=== PATIENT | female | born 1945 | race Caucasian/White ===

== ENCOUNTER 2018-07-21 13:42 | Inpatient (IN) | payer OTHER ==
[2018-07-21 14:19] LABS: ADD MAN DIFF? NO
[2018-07-21 14:21] LABS: WHITE BLOOD COUNT 2.2 10^3/ul (4.8-10.8)
[2018-07-21 14:21] LABS: ABNORMAL IP MESSAGE 1; BASOPHILS % 0.4 % (0.0-2.0); EOSINOPHILS % 0.4 % (0.0-7.0); HEMATOCRIT 35.6 % (37.0-47.0); HEMOGLOBIN 11.6 g/dl (12.0-16.0); LYMPHOCYTES # 0.3 10^3/ul (0.8-2.9); LYMPHOCYTES % 13.8 % (15.0-51.0); MEAN CORPUSCULAR HEMOGLOBIN 32.7 pg (29.0-33.0); MEAN CORPUSCULAR HGB CONC 32.6 g/dl (32.0-37.0); MEAN CORPUSCULAR VOLUME 100.3 fl (82.0-101.0); MEAN PLATELET VOLUME 13.1 fl (7.4-10.4); MONOCYTE # 0.2 10^3/ul (0.3-0.9); MONOCYTES % 9.4 % (0.0-11.0); NEUTROPHIL # 1.7 10^3/ul (1.6-7.5); NEUTROPHILS % 75.6 % (39.0-77.0); NUCLEATED RED BLOOD CELLS% 1.3 /100WBC (0.0-0.0); PLATELET COUNT 86 10^3/UL (140-415); RED BLOOD COUNT 3.55 10^6/ul (4.20-5.40); RED CELL DISTRIBUTION WIDTH 19.1 % (11.5-14.5)
[2018-07-21 14:22] LABS: POSITIVE DIFF @See below
[2018-07-21] MEDS: CEFEPIME 1GM/50 ML (PMX) 50 ML IVPB (14:34)
[2018-07-21] MEDS: IBUPROFEN 600 MG TAB PO (14:37)
[2018-07-21 14:40] LABS: INR 1.46; PT RATIO 1.4
[2018-07-21] MEDS ORDERED: ACETAMINOPHEN 650 MG SUPP PR (14:40)
[2018-07-21 14:41] LABS: PARTIAL THROMBOPLASTIN TIME 35.8 Sec (23.0-35.0)
[2018-07-21 14:42] LABS: ADD UMIC YES; UR ASCORBIC ACID NEGATIVE (NEGATIVE); UR BACTERIA MANY /HPF (NONE SEEN); UR BILIRUBIN (Dip) NEGATIVE (NEGATIVE); UR BLOOD (Dip) 3+ mg/dL (NEGATIVE); UR CLARITY TURBID (CLEAR); UR COLOR RED (YELLOW); UR GLUCOSE (Dip) NEGATIVE (NEGATIVE); UR KETONES (Dip) TRACE mg/dL (NEGATIVE); UR LEUKOCYTE ESTERASE (Dip) 2+ Leu/ul (NEGATIVE); UR NITRITE (Dip) NEGATIVE (NEGATIVE); UR RBC > 182 /HPF (0-5); UR SPECIFIC GRAVITY (Dip) 1.016 (1.003-1.030); UR SQUAMOUS EPITHELIAL CELL MODERATE /HPF (FEW); UR TOTAL PROTEIN (Dip) 3+ mg/dl (NEGATIVE); UR UROBILINOGEN (Dip) NEGATIVE (NEGATIVE); UR WBC > 182 /HPF (0-5)
[2018-07-21] MEDS: ACETAMINOPHEN 650 MG SUPP PR (14:45)
[2018-07-21] MEDS ORDERED: DEXTROSE 50% 50 ML SYRINGE (14:51)
[2018-07-21] MEDS: DEXTROSE 50% 50 ML SYRINGE IV ×5 (14:55→20:35)
[2018-07-21 14:57] LABS: ALANINE AMINOTRANSFERASE 9 IU/L (13-69); ALBUMIN 3.8 g/dl (3.3-4.9); ALBUMIN/GLOBULIN RATIO 0.88; ALKALINE PHOSPHATASE 251 IU/L (42-121); ASPARTATE AMINO TRANSFERASE 183 IU/L (15-46); BILIRUBIN,INDIRECT 0.4 mg/dl (0-1.1); BILIRUBIN,TOTAL 0.7 mg/dl (0.2-1.3); BLOOD UREA NITROGEN 68 mg/dl (7-20); CALCIUM 8.2 mg/dl (8.4-10.2); CREATININE 5.45 mg/dl (0.44-1.00); GLUCOSE 96 mg/dl (70-220); LIPASE 25 U/L (23-300); TOTAL PROTEIN 8.1 g/dl (6.1-8.1)
[2018-07-21 15:10] LABS: TROPONIN-I 0.046 ng/ml (0.000-0.120)
[2018-07-21] MEDS: VANCOMYCIN 1 GM (PMX) 250 ML IVPB (15:25)
[2018-07-21 15:39] LABS: AADO2 Arterial 79.3 mmHg (7.0-24.0); Allen Test ACCEPTAB; Arterial Base Excess -1.9 mmol/L (-3.0-3); Arterial Blood Gas Oxygen Sat 97.1 mmHG (95.0-100.0); Arterial COHb 1.3 % (0.0-3.0); Arterial Fraction of Oxyhgb 95.5 % (93.0-99.0); Arterial HCO3 21.7 mmol/L (22.0-26.0); Arterial MetHb 0.3 % (0.0-1.5); Arterial pCO2 33.5 mmhg (35-45); Blood Gas IEPAP 18/5; Blood Gas PS 13; MODE MASK - BIPAP; Site Right Radial
[2018-07-21] MEDS ORDERED: NACL 0.9% 3 ML SYG IV (16:30)
[2018-07-21 16:46] LABS: HAAIG REFLEX REFLEX FILED
[2018-07-21] MEDS ORDERED: VANCOMYCIN IV PER PHARMACY XX (17:00)
[2018-07-21 17:14] LABS: ANION GAP 19 (5-13); CARBON DIOXIDE 24 mmol/L (21-31); CHLORIDE 90 mmol/L (97-110)
[2018-07-21 17:26] LABS: SODIUM 133 mmol/L (135-144)
[2018-07-21] MEDS ORDERED: PHENYLephrine 20MG IN 250 ML 250 ML IV (17:30)
[2018-07-21 17:42] LABS: B-TYPE NATRIURETIC PEPTIDE > 175000 PG/ML (0-125)
[2018-07-21 17:46] LABS: HEPATITIS B SURFACE ANTIGEN NEGATIVE (NEGATIVE)
[2018-07-21] MEDS: LIDOCAINE 1% (MPF) 5 ML VIAL SC ×2 (18:00→19:00)
[2018-07-21 18:04] LABS: HEPATITIS B CORE ANTIBODY NEGATIVE (NEGATIVE); HEPATITIS C VIRAL ANTIBODY NEGATIVE (NEGATIVE)
[2018-07-21] MEDS: NORepinephrine 8MG/250 ML (PMX 250 ML IV (18:12)
[2018-07-21] MEDS: MEROPENEM 500MG/50 ML (PMX) 50 ML IVPB (18:21)
[2018-07-21] MEDS: ACCU-CHEK XX ×3 (19:00→23:00)
[2018-07-21 19:58] LABS: LACTIC ACID 2.7 mmol/L (0.5-2.0)
[2018-07-21] MEDS: HEPARIN 5,000 UNIT/1 ML VIAL SC (21:45)
[2018-07-22] MEDS: DEXTROSE 50% 50 ML SYRINGE IV ×4 (00:52→23:42)
[2018-07-22] MEDS: ACCU-CHEK XX ×12 (00:57→23:42)
[2018-07-22] MEDS: traMADol 50 MG TAB PO ×2 (01:29→07:57)
[2018-07-22 05:09] LABS: ABNORMAL IP MESSAGE 1; HEMATOCRIT 37.1 % (37.0-47.0); HEMOGLOBIN 12.3 g/dl (12.0-16.0); MEAN CORPUSCULAR HEMOGLOBIN 32.5 pg (29.0-33.0); MEAN CORPUSCULAR HGB CONC 33.2 g/dl (32.0-37.0); MEAN CORPUSCULAR VOLUME 97.9 fl (82.0-101.0); MEAN PLATELET VOLUME 12.1 fl (7.4-10.4); NUCLEATED RED BLOOD CELLS% 0.3 /100WBC (0.0-0.0); PLATELET COUNT 70 10^3/UL (140-415); RED BLOOD COUNT 3.79 10^6/ul (4.20-5.40); RED CELL DISTRIBUTION WIDTH 18.6 % (11.5-14.5)
[2018-07-22 05:09] LABS: WHITE BLOOD COUNT 7.2 10^3/ul (4.8-10.8)
[2018-07-22 05:14] LABS: ADD MAN DIFF? YES; POSITIVE DIFF @See below
[2018-07-22 05:44] LABS: ALANINE AMINOTRANSFERASE 20 IU/L (13-69); ALBUMIN 2.9 g/dl (3.3-4.9); ALKALINE PHOSPHATASE 253 IU/L (42-121); ANION GAP 16 (5-13); ASPARTATE AMINO TRANSFERASE 36 IU/L (15-46); BILIRUBIN,INDIRECT 0.6 mg/dl (0-1.1); BILIRUBIN,TOTAL 1.2 mg/dl (0.2-1.3); BLOOD UREA NITROGEN 70 mg/dl (7-20); CALCIUM 8.4 mg/dl (8.4-10.2); CARBON DIOXIDE 23 mmol/L (21-31); CHLORIDE 93 mmol/L (97-110); CREATININE 6.29 mg/dl (0.44-1.00); GLUCOSE 101 mg/dl (70-220); POTASSIUM 5.6 mmol/L (3.5-5.1); SODIUM 132 mmol/L (135-144); TOTAL PROTEIN 6.5 g/dl (6.1-8.1)
[2018-07-22 07:06] LABS: ANISOCYTOSIS 3+ (0-0); BAND NEUTROPHILS % (M) 43 % (0-4); BURR CELLS 3+ (0-0); EOSINOPHILS % (M) 10 % (0-7); ERYTHROBLAST% (NRBC) (M) 1 % (0-0); GIANT THROMBO% (M) 1 % (0-0); LYMPHOCYTES #M 0.2 10^3/ul (0.8-2.9); LYMPHOCYTES % (M) 4 % (15-51); METAMYELOCYTES %M 14 % (0-0); MONOCYTE #M 0.2 10^3/ul (0.3-0.9); MONOCYTES % (M) 4 % (0-11); MYELOCYTES #M 0.3 10^3/ul (0.0-0.0); MYELOCYTES % (M) 5 % (0-0); PLATELET ESTIMATE DECREASED; POIKILOCYTOSIS 2+ (0-0); POLYCHROMASIA 1+ (0-0); SEG NEUT #M 1.7 10^3/ul (1.6-7.5); SEGMENTED NEUTROPHILS (M) % 20 % (39-77)
[2018-07-22 07:48] LABS: HEMOGLOBIN A1C 5.1 % (0-5.9)
[2018-07-22] MEDS: HEPARIN 5,000 UNIT/1 ML VIAL SC ×2 (08:40→20:36)
[2018-07-22] MEDS: NORepinephrine 8MG/250 ML (PMX 250 ML IV ×2 (08:43→17:31)
[2018-07-22] MEDS: LEVOTHYROXINE 25 MCG TAB PO (09:32)
[2018-07-22] MEDS: FLUDROCORTISONE 0.1 MG TAB PO (09:32)
[2018-07-22] MEDS: HEPARIN 1000 UNITS/ML 10 ML INJ CATHETER (10:26)
[2018-07-22 11:32] LABS: DIGOXIN 0.5 ng/ml (1.0-2.0)
[2018-07-22] MEDS: DIGOXIN 0.125 MG TAB PO (12:27)
[2018-07-22 12:36] LABS: CREATINE KINASE 35 IU/L (23-200)
[2018-07-22 12:46] LABS: CK INDEX 4.9; CK-MB 1.71 ng/ml (0.0-2.4)
[2018-07-22 12:51] LABS: TROPONIN-I 0.177 ng/ml (0.000-0.120)
[2018-07-22] MEDS: LIDOCAINE 1% (MPF) 5 ML VIAL SC (17:00)
[2018-07-22] MEDS: MEROPENEM 500MG/50 ML (PMX) 50 ML IVPB (17:31)
[2018-07-22 18:20] LABS: CREATINE KINASE 27 IU/L (23-200)
[2018-07-22 18:31] LABS: CK INDEX 4.7; CK-MB 1.28 ng/ml (0.0-2.4)
[2018-07-22 18:32] LABS: TROPONIN-I 0.153 ng/ml (0.000-0.120)
[2018-07-22] MEDS ORDERED: PHENYLephrine 40 MG in DEXTROSE 5% 246 ML IV (22:00)
[2018-07-22 22:40] LABS: ANION GAP 17 (5-13); BLOOD UREA NITROGEN 36 mg/dl (7-20); CALCIUM 8.3 mg/dl (8.4-10.2); CARBON DIOXIDE 28 mmol/L (21-31); CHLORIDE 94 mmol/L (97-110); CREATININE 3.76 mg/dl (0.44-1.00); GLUCOSE 91 mg/dl (70-220); MAGNESIUM 1.9 mg/dl (1.7-2.5); POTASSIUM 4.1 mmol/L (3.5-5.1); SODIUM 139 mmol/L (135-144)
[2018-07-22] MEDS: ONDANSETRON 4 MG INJ IV (23:29)
[2018-07-23 00:32] LABS: CREATINE KINASE 23 IU/L (23-200)
[2018-07-23 00:45] LABS: CK INDEX 5.3; CK-MB 1.22 ng/ml (0.0-2.4)
[2018-07-23 00:46] LABS: TROPONIN-I 0.158 ng/ml (0.000-0.120)
[2018-07-23] MEDS: ACCU-CHEK XX ×10 (01:05→21:33)
[2018-07-23 05:36] LABS: ABNORMAL IP MESSAGE 1; HEMATOCRIT 37.6 % (37.0-47.0); HEMOGLOBIN 12.3 g/dl (12.0-16.0); MEAN CORPUSCULAR HEMOGLOBIN 32.7 pg (29.0-33.0); MEAN CORPUSCULAR HGB CONC 32.7 g/dl (32.0-37.0); PLATELET COUNT 67 10^3/UL (140-415); RED BLOOD COUNT 3.76 10^6/ul (4.20-5.40); RED CELL DISTRIBUTION WIDTH 18.5 % (11.5-14.5)
[2018-07-23 05:36] LABS: WHITE BLOOD COUNT 14.1 10^3/ul (4.8-10.8)
[2018-07-23 05:39] LABS: ADD MAN DIFF? YES; POSITIVE DIFF @See below
[2018-07-23 06:12] LABS: VANCOMYCIN,RANDOM 9.8 ug/ml
[2018-07-23 06:27] LABS: ANION GAP 18 (5-13); BLOOD UREA NITROGEN 37 mg/dl (7-20); CALCIUM 8.3 mg/dl (8.4-10.2); CARBON DIOXIDE 27 mmol/L (21-31); CHLORIDE 92 mmol/L (97-110); CREATININE 3.68 mg/dl (0.44-1.00); GLUCOSE 98 mg/dl (70-220); PHOSPHORUS 4.8 mg/dl (2.5-4.9); POTASSIUM 4.2 mmol/L (3.5-5.1); SODIUM 137 mmol/L (135-144)
[2018-07-23 07:40] LABS: ANISOCYTOSIS 3+ (0-0); BAND NEUTROPHILS #M 7.6 10^3/ul (0.0-0.6); BAND NEUTROPHILS % (M) 54 % (0-4); BURR CELLS 3+ (0-0); GIANT THROMBO% (M) 4 % (0-0); LYMPHOCYTES #M 0.2 10^3/ul (0.8-2.9); LYMPHOCYTES % (M) 2 % (15-51); METAMYELOCYTES #M 0.5 10^3/ul (0.0-0.0); METAMYELOCYTES %M 4 % (0-0); MONOCYTE #M 2.5 10^3/ul (0.3-0.9); MONOCYTES % (M) 18 % (0-11); PLATELET ESTIMATE DECREASED; POIKILOCYTOSIS 3+ (0-0); PROMYELOCYTES #M 0.1 10^3/ul (0-0); PROMYELOCYTES % (M) 1 % (0-0); REACTIVE LYMPHOCYTES #M 0.1 10^3/ul (0.0-0.0); REACTIVE LYMPHOCYTES% (M) 1 % (0-0); SEG NEUT #M 3.9 10^3/ul (1.6-7.5); SEGMENTED NEUTROPHILS (M) % 20 % (39-77); SMUDGE%M 1 % (0-0); SPHEROCYTES 1+ (0-0); TARGET CELLS 1+ (0-0)
[2018-07-23] MEDS: HEPARIN 5,000 UNIT/1 ML VIAL SC (09:00)
[2018-07-23] MEDS: LEVOTHYROXINE 25 MCG TAB PO (09:27)
[2018-07-23] MEDS: DEXTROSE 10% 1,000 ML IV (12:30)
[2018-07-23] MEDS: DIGOXIN 0.125 MG TAB PO (12:43)
[2018-07-23] MEDS: DIGOXIN 500 MCG INJ IV (12:58)
[2018-07-23] MEDS: AMIODARONE 150MG/D5W BOLUS 100 ML IV (13:06)
[2018-07-23] MEDS: AMIODARONE 900 MG in DEXTROSE 5% 482 ML IV (13:37)
[2018-07-23] MEDS: VANCOMYCIN 750 MG (PMX) 250 ML IVPB (15:44)
[2018-07-23] MEDS: MEROPENEM 500MG/50 ML (PMX) 50 ML IVPB (18:25)
[2018-07-23] MEDS: NORepinephrine 32 MG in DEXTROSE 5% 218 ML IV (20:35)
[2018-07-24 04:46] LABS: ABNORMAL IP MESSAGE 1; HEMATOCRIT 35.5 % (37.0-47.0); HEMOGLOBIN 11.8 g/dl (12.0-16.0); MEAN CORPUSCULAR HEMOGLOBIN 32.4 pg (29.0-33.0); MEAN CORPUSCULAR HGB CONC 33.2 g/dl (32.0-37.0); MEAN CORPUSCULAR VOLUME 97.5 fl (82.0-101.0); MEAN PLATELET VOLUME 13.1 fl (7.4-10.4); PLATELET COUNT 48 10^3/UL (140-415); RED BLOOD COUNT 3.64 10^6/ul (4.20-5.40); RED CELL DISTRIBUTION WIDTH 18.2 % (11.5-14.5)
[2018-07-24 04:46] LABS: WHITE BLOOD COUNT 17.7 10^3/ul (4.8-10.8)
[2018-07-24 04:49] LABS: ADD MAN DIFF? YES; POSITIVE DIFF @See below
[2018-07-24 05:14] LABS: ANION GAP 15 (5-13); BLOOD UREA NITROGEN 42 mg/dl (7-20); CALCIUM 8.7 mg/dl (8.4-10.2); CARBON DIOXIDE 24 mmol/L (21-31); CHLORIDE 91 mmol/L (97-110); CREATININE 3.84 mg/dl (0.44-1.00); GLUCOSE 117 mg/dl (70-220); MAGNESIUM 1.9 mg/dl (1.7-2.5); PHOSPHORUS 4.9 mg/dl (2.5-4.9); POTASSIUM 4.2 mmol/L (3.5-5.1); SODIUM 130 mmol/L (135-144)
[2018-07-24] MEDS: DEXTROSE 10% 1,000 ML IV (07:00)
[2018-07-24] MEDS: ACCU-CHEK XX ×4 (07:05→21:00)
[2018-07-24 07:21] LABS: ANISOCYTOSIS 2+ (0-0); BAND NEUTROPHILS #M 3.3 10^3/ul (0.0-0.6); BAND NEUTROPHILS % (M) 19 % (0-4); BURR CELLS 1+ (0-0); GIANT THROMBO% (M) 1 % (0-0); LYMPHOCYTES #M 0.3 10^3/ul (0.8-2.9); LYMPHOCYTES % (M) 2 % (15-51); METAMYELOCYTES #M 0.1 10^3/ul (0.0-0.0); METAMYELOCYTES %M 1 % (0-0); MONOCYTE #M 0.5 10^3/ul (0.3-0.9); MONOCYTES % (M) 3 % (0-11); MYELOCYTES #M 0.1 10^3/ul (0.0-0.0); MYELOCYTES % (M) 1 % (0-0); OVALOCYTES 1+ (0-0); PLATELET ESTIMATE DECREASED; POIKILOCYTOSIS 2+ (0-0); POLYCHROMASIA 1+ (0-0); REACTIVE LYMPHOCYTES #M 0.8 10^3/ul (0.0-0.0); REACTIVE LYMPHOCYTES% (M) 5 % (0-0); SEG NEUT #M 12.8 10^3/ul (1.6-7.5); SEGMENTED NEUTROPHILS (M) % 69 % (39-77); SMUDGE%M 8 % (0-0); TARGET CELLS 1+ (0-0)
[2018-07-24] MEDS: LEVOTHYROXINE 25 MCG TAB PO (08:25)
[2018-07-24] MEDS: AMIODARONE 900 MG in DEXTROSE 5% 482 ML IV (08:38)
[2018-07-24] MEDS: ONDANSETRON 4 MG INJ IV (09:17)
[2018-07-24] MEDS ORDERED: CEFTRIAXONE 1 GM/50 ML (PMX) 50 ML IVPB (10:00)
[2018-07-24] MEDS ORDERED: GENTAMICIN IV PER PHARMACY XX (10:00)
[2018-07-24] MEDS: HEPARIN 1000 UNITS/ML 10 ML INJ CATHETER (14:00)
[2018-07-24] MEDS: AMIODARONE 200 MG TAB PO ×2 (14:22→21:17)
[2018-07-24] MEDS: DIGOXIN 0.125 MG TAB PO (14:22)
[2018-07-24] MEDS: GENTAMICIN 80 MG/NS (PMX) 50 ML IVPB (15:16)
[2018-07-24] MEDS: CEFTRIAXONE 1 GM/50 ML (PMX) 50 ML IVPB (16:45)
[2018-07-25] MEDS: DEXTROSE 10% 1,000 ML IV (01:13)
[2018-07-25] MEDS: NORepinephrine 32 MG in DEXTROSE 5% 218 ML IV (02:41)
[2018-07-25 04:57] LABS: ADD MAN DIFF? NO
[2018-07-25 05:00] LABS: WHITE BLOOD COUNT 12.4 10^3/ul (4.8-10.8)
[2018-07-25 05:00] LABS: ABNORMAL IP MESSAGE 1; BASOPHILS % 0.3 % (0.0-2.0); EOSINOPHILS % 0.2 % (0.0-7.0); HEMATOCRIT 36.2 % (37.0-47.0); HEMOGLOBIN 12.2 g/dl (12.0-16.0); LYMPHOCYTES # 0.9 10^3/ul (0.8-2.9); LYMPHOCYTES % 7.4 % (15.0-51.0); MEAN CORPUSCULAR HEMOGLOBIN 32.4 pg (29.0-33.0); MEAN CORPUSCULAR HGB CONC 33.7 g/dl (32.0-37.0); MONOCYTE # 0.9 10^3/ul (0.3-0.9); MONOCYTES % 7.6 % (0.0-11.0); NEUTROPHIL # 10.4 10^3/ul (1.6-7.5); NEUTROPHILS % 83.9 % (39.0-77.0); NUCLEATED RED BLOOD CELLS% 0.2 /100WBC (0.0-0.0); RED BLOOD COUNT 3.77 10^6/ul (4.20-5.40); RED CELL DISTRIBUTION WIDTH 18.1 % (11.5-14.5)
[2018-07-25 05:05] LABS: PLATELET COUNT 39 10^3/UL (140-415)
[2018-07-25 05:06] LABS: POSITIVE DIFF @See below
[2018-07-25 05:29] LABS: ANION GAP 11 (5-13); BLOOD UREA NITROGEN 24 mg/dl (7-20); CALCIUM 8.6 mg/dl (8.4-10.2); CARBON DIOXIDE 30 mmol/L (21-31); CHLORIDE 92 mmol/L (97-110); CREATININE 2.51 mg/dl (0.44-1.00); GLUCOSE 116 mg/dl (70-220); MAGNESIUM 1.9 mg/dl (1.7-2.5); PHOSPHORUS 3.1 mg/dl (2.5-4.9); POTASSIUM 3.8 mmol/L (3.5-5.1); SODIUM 133 mmol/L (135-144)
[2018-07-25] MEDS: LEVOTHYROXINE 25 MCG TAB PO (06:04)
[2018-07-25] MEDS: ACCU-CHEK XX ×4 (08:46→20:47)
[2018-07-25] MEDS: MIDODRINE 5 MG TAB PO ×3 (08:47→17:00)
[2018-07-25] MEDS: AMIODARONE 200 MG TAB PO ×2 (08:57→20:47)
[2018-07-25] MEDS: DIGOXIN 0.125 MG TAB PO (13:00)
[2018-07-25] MEDS: CEFTRIAXONE 1 GM/50 ML (PMX) 50 ML IVPB (16:05)
[2018-07-26 04:49] LABS: ADD MAN DIFF? NO
[2018-07-26 04:56] LABS: ABNORMAL IP MESSAGE 1; BASOPHIL # 0.1 10^3/ul (0.0-0.1); BASOPHILS % 0.6 % (0.0-2.0); EOSINOPHILS # 0.1 10^3/ul (0.0-0.5); EOSINOPHILS % 0.9 % (0.0-7.0); HEMATOCRIT 37.2 % (37.0-47.0); HEMOGLOBIN 12.4 g/dl (12.0-16.0); LYMPHOCYTES % 12.6 % (15.0-51.0); MEAN CORPUSCULAR HEMOGLOBIN 32.1 pg (29.0-33.0); MEAN CORPUSCULAR HGB CONC 33.3 g/dl (32.0-37.0); MEAN CORPUSCULAR VOLUME 96.4 fl (82.0-101.0); MEAN PLATELET VOLUME 12.8 fl (7.4-10.4); MONOCYTE # 1.2 10^3/ul (0.3-0.9); MONOCYTES % 15.4 % (0.0-11.0); NEUTROPHIL # 5.5 10^3/ul (1.6-7.5); NEUTROPHILS % 69.9 % (39.0-77.0); NUCLEATED RED BLOOD CELLS% 0.3 /100WBC (0.0-0.0); PLATELET COUNT 33 10^3/UL (140-415); RED BLOOD COUNT 3.86 10^6/ul (4.20-5.40); RED CELL DISTRIBUTION WIDTH 17.9 % (11.5-14.5)
[2018-07-26 04:56] LABS: WHITE BLOOD COUNT 7.9 10^3/ul (4.8-10.8)
[2018-07-26 05:00] LABS: POSITIVE DIFF @See below
[2018-07-26 05:14] LABS: AADO2 Arterial 37.2 mmHg (7.0-24.0); Allen Test ACCEPTAB; Arterial Base Excess 3.1 mmol/L (-3.0-3); Arterial Blood Gas Oxygen Sat 92.7 mmHG (95.0-100.0); Arterial COHb 2.2 % (0.0-3.0); Arterial Fraction of Oxyhgb 90.6 % (93.0-99.0); Arterial MetHb 0.1 % (0.0-1.5); Arterial pCO2 38.5 mmhg (35-45); MODE ROOM AIR; Site Right Radial
[2018-07-26 05:28] LABS: TROPONIN-I 0.117 ng/ml (0.000-0.120)
[2018-07-26] MEDS: LEVOTHYROXINE 25 MCG TAB PO (06:05)
[2018-07-26] MEDS: ACCU-CHEK XX ×3 (07:05→16:31)
[2018-07-26 07:52] LABS: ANION GAP 13 (5-13); BLOOD UREA NITROGEN 31 mg/dl (7-20); CALCIUM 8.9 mg/dl (8.4-10.2); CARBON DIOXIDE 25 mmol/L (21-31); CHLORIDE 91 mmol/L (97-110); CREATININE 2.74 mg/dl (0.44-1.00); GLUCOSE 94 mg/dl (70-220); POTASSIUM 3.9 mmol/L (3.5-5.1); SODIUM 129 mmol/L (135-144)
[2018-07-26 08:12] LABS: LACTIC ACID 3.2 mmol/L (0.5-2.0)
[2018-07-26] MEDS: AMIODARONE 200 MG TAB PO ×2 (08:24→20:47)
[2018-07-26] MEDS: MIDODRINE 5 MG TAB PO ×3 (08:24→16:26)
[2018-07-26 09:54] LABS: ANISOCYTOSIS 3+ (0-0); BAND NEUTROPHILS #M 0.4 10^3/ul (0.0-0.6); BAND NEUTROPHILS % (M) 6 % (0-4); EOSINOPHILS % (M) 3 % (0-7); ERYTHROBLAST% (NRBC) (M) 1 % (0-0); GIANT THROMBO% (M) 1 % (0-0); LYMPHOCYTES #M 0.8 10^3/ul (0.8-2.9); LYMPHOCYTES % (M) 11 % (15-51); MONOCYTE #M 0.5 10^3/ul (0.3-0.9); MONOCYTES % (M) 7 % (0-11); PLATELET ESTIMATE DECREASED; POIKILOCYTOSIS 2+ (0-0); REACTIVE LYMPHOCYTES% (M) 1 % (0-0); SEG NEUT #M 5.7 10^3/ul (1.6-7.5); SEGMENTED NEUTROPHILS (M) % 72 % (39-77); SMUDGE%M 83 % (0-0)
[2018-07-26] MEDS: DEXTROSE 10% 1,000 ML IV ×2 (10:16→19:00)
[2018-07-26] MEDS: DIGOXIN 0.125 MG TAB PO (13:03)
[2018-07-26] MEDS: LORAZEPAM 1 MG TAB PO (13:03)
[2018-07-26] MEDS: HEPARIN 1000 UNITS/ML 10 ML INJ CATHETER (14:26)
[2018-07-26] MEDS: CEFTRIAXONE 1 GM/50 ML (PMX) 50 ML IVPB (16:26)
[2018-07-26] MEDS: BALSAM PERU/CASTOR OIL 60 GM TUBE TOP (16:26)
[2018-07-26] MEDS: GENTAMICIN 60 MG in SOD CHLORIDE 0.9% 50 ML IVPB (18:18)
[2018-07-26] MEDS ORDERED: HEPARIN 5,000 UNIT/1 ML VIAL SC (21:00)
[2018-07-26] MEDS: ONDANSETRON 4 MG INJ IV (22:10)
[2018-07-27 01:11] LABS: ADD MAN DIFF? NO
[2018-07-27 01:14] LABS: WHITE BLOOD COUNT 8.5 10^3/ul (4.8-10.8)
[2018-07-27 01:14] LABS: ABNORMAL IP MESSAGE 1; BASOPHIL # 0.1 10^3/ul (0.0-0.1); BASOPHILS % 0.6 % (0.0-2.0); EOSINOPHILS % 0.2 % (0.0-7.0); HEMATOCRIT 39.9 % (37.0-47.0); LYMPHOCYTES # 0.6 10^3/ul (0.8-2.9); LYMPHOCYTES % 7.2 % (15.0-51.0); MEAN CORPUSCULAR HEMOGLOBIN 32.2 pg (29.0-33.0); MEAN CORPUSCULAR HGB CONC 32.6 g/dl (32.0-37.0); MEAN CORPUSCULAR VOLUME 98.8 fl (82.0-101.0); MONOCYTES % 11.3 % (0.0-11.0); NEUTROPHIL # 6.7 10^3/ul (1.6-7.5); NEUTROPHILS % 79.6 % (39.0-77.0); NUCLEATED RED BLOOD CELLS% 0.2 /100WBC (0.0-0.0); PLATELET COUNT 33 10^3/UL (140-415); RED BLOOD COUNT 4.04 10^6/ul (4.20-5.40); RED CELL DISTRIBUTION WIDTH 18.2 % (11.5-14.5)
[2018-07-27 01:19] LABS: POSITIVE DIFF @See below
[2018-07-27 01:31] LABS: ANION GAP 15 (5-13); BLOOD UREA NITROGEN 19 mg/dl (7-20); CALCIUM 8.9 mg/dl (8.4-10.2); CARBON DIOXIDE 28 mmol/L (21-31); CHLORIDE 93 mmol/L (97-110); CREATININE 2.17 mg/dl (0.44-1.00); GLUCOSE 131 mg/dl (70-220); MAGNESIUM 1.9 mg/dl (1.7-2.5); POTASSIUM 3.8 mmol/L (3.5-5.1); SODIUM 136 mmol/L (135-144)
[2018-07-27 01:44] LABS: PHOSPHORUS 3.4 mg/dl (2.5-4.9)
[2018-07-27 01:44] LABS: LACTIC ACID 5.1 mmol/L (0.5-2.0)
[2018-07-27 01:46] LABS: AADO2 Arterial 231.4 mmHg (7.0-24.0); Arterial Base Excess -1.4 mmol/L (-3.0-3); Arterial Blood Gas Oxygen Sat 94.5 mmHG (95.0-100.0); Arterial COHb 1.4 % (0.0-3.0); Arterial Fraction of Oxyhgb 92.9 % (93.0-99.0); Arterial HCO3 23.8 mmol/L (22.0-26.0); Arterial MetHb 0.3 % (0.0-1.5); Arterial pCO2 42.1 mmhg (35-45); MODE MASK - VENTI; Site Left Radial
[2018-07-27 05:14] LABS: LACTIC ACID 4.7 mmol/L (0.5-2.0)
[2018-07-27] MEDS: DEXTROSE 10% 1,000 ML IV (06:16)
[2018-07-27] MEDS: LEVOTHYROXINE 25 MCG TAB PO (07:00)
[2018-07-27] MEDS: AMIODARONE 200 MG TAB PO ×2 (08:34→22:09)
[2018-07-27] MEDS: MIDODRINE 5 MG TAB PO ×3 (08:34→22:08)
[2018-07-27] MEDS: BALSAM PERU/CASTOR OIL 60 GM TUBE TOP (08:38)
[2018-07-27] MEDS: LEVOFLOXACIN 250MG/D5W (PMX) 50 ML IVPB (13:30)
[2018-07-27] MEDS: DIGOXIN 0.125 MG TAB PO (14:49)
[2018-07-27] MEDS: VANCOMYCIN 1 GM (PMX) 250 ML IVPB (14:51)
[2018-07-27] MEDS: CEFTRIAXONE 1 GM/50 ML (PMX) 50 ML IVPB (17:44)
[2018-07-27] MEDS: ONDANSETRON 4 MG INJ IV (20:30)
[2018-07-28 04:37] LABS: ADD MAN DIFF? NO
[2018-07-28 04:40] LABS: ABNORMAL IP MESSAGE 1; BASOPHIL # 0.1 10^3/ul (0.0-0.1); BASOPHILS % 0.7 % (0.0-2.0); EOSINOPHILS # 0.1 10^3/ul (0.0-0.5); EOSINOPHILS % 0.4 % (0.0-7.0); HEMATOCRIT 39.4 % (37.0-47.0); HEMOGLOBIN 13.2 g/dl (12.0-16.0); LYMPHOCYTES # 0.9 10^3/ul (0.8-2.9); LYMPHOCYTES % 6.2 % (15.0-51.0); MEAN CORPUSCULAR HEMOGLOBIN 32.4 pg (29.0-33.0); MEAN CORPUSCULAR HGB CONC 33.5 g/dl (32.0-37.0); MEAN CORPUSCULAR VOLUME 96.8 fl (82.0-101.0); MEAN PLATELET VOLUME 12.8 fl (7.4-10.4); MONOCYTES % 7.2 % (0.0-11.0); NEUTROPHIL # 11.6 10^3/ul (1.6-7.5); NEUTROPHILS % 84.9 % (39.0-77.0); PLATELET COUNT 35 10^3/UL (140-415); RED BLOOD COUNT 4.07 10^6/ul (4.20-5.40); RED CELL DISTRIBUTION WIDTH 18.2 % (11.5-14.5)
[2018-07-28 04:40] LABS: WHITE BLOOD COUNT 13.7 10^3/ul (4.8-10.8)
[2018-07-28 04:50] LABS: POSITIVE DIFF @See below
[2018-07-28 05:03] LABS: ANION GAP 10 (5-13); BLOOD UREA NITROGEN 29 mg/dl (7-20); CALCIUM 9.2 mg/dl (8.4-10.2); CARBON DIOXIDE 30 mmol/L (21-31); CHLORIDE 93 mmol/L (97-110); CREATININE 2.49 mg/dl (0.44-1.00); GLUCOSE 98 mg/dl (70-220); MAGNESIUM 1.9 mg/dl (1.7-2.5); PHOSPHORUS 3.4 mg/dl (2.5-4.9); POTASSIUM 3.9 mmol/L (3.5-5.1); SODIUM 133 mmol/L (135-144)
[2018-07-28 05:17] LABS: LACTIC ACID 2.6 mmol/L (0.5-2.0)
[2018-07-28] MEDS: MIDODRINE 5 MG TAB PO ×3 (06:22→14:56)
[2018-07-28] MEDS: LEVOTHYROXINE 25 MCG TAB PO ×2 (06:22→07:00)
[2018-07-28] MEDS: ONDANSETRON 4 MG INJ IV (06:33)
[2018-07-28] MEDS: AMIODARONE 200 MG TAB PO ×2 (08:10→20:45)
[2018-07-28] MEDS: BALSAM PERU/CASTOR OIL 60 GM TUBE TOP (08:12)
[2018-07-28] MEDS: traMADol 50 MG TAB PO (09:10)
[2018-07-28] MEDS: DEXTROSE 10% 1,000 ML IV ×2 (12:28→19:03)
[2018-07-28] MEDS: NORepinephrine 32 MG in DEXTROSE 5% 218 ML IV (12:28)
[2018-07-28] MEDS: DIGOXIN 0.125 MG TAB PO (12:41)
[2018-07-28] MEDS: PANTOPRAZOLE (EC) 40 MG TAB PO (12:42)
[2018-07-28] MEDS ORDERED: ACETAMINOPHEN 325 MG TAB PO (16:30)
[2018-07-28] MEDS: GENTAMICIN 60 MG in SOD CHLORIDE 0.9% 50 ML IVPB (19:00)
[2018-07-28] MEDS: LORAZEPAM 1 MG TAB PO (22:21)
[2018-07-29 04:59] LABS: ADD MAN DIFF? NO
[2018-07-29 05:09] LABS: WHITE BLOOD COUNT 13.6 10^3/ul (4.8-10.8)
[2018-07-29 05:09] LABS: ABNORMAL IP MESSAGE 1; BASOPHIL # 0.1 10^3/ul (0.0-0.1); BASOPHILS % 0.4 % (0.0-2.0); EOSINOPHILS # 0.1 10^3/ul (0.0-0.5); EOSINOPHILS % 0.8 % (0.0-7.0); LYMPHOCYTES # 0.7 10^3/ul (0.8-2.9); LYMPHOCYTES % 5.1 % (15.0-51.0); MEAN CORPUSCULAR HEMOGLOBIN 32.1 pg (29.0-33.0); MEAN CORPUSCULAR HGB CONC 33.3 g/dl (32.0-37.0); MEAN CORPUSCULAR VOLUME 96.3 fl (82.0-101.0); MONOCYTE # 0.8 10^3/ul (0.3-0.9); MONOCYTES % 5.6 % (0.0-11.0); NEUTROPHIL # 11.8 10^3/ul (1.6-7.5); NEUTROPHILS % 87.3 % (39.0-77.0); RED BLOOD COUNT 4.05 10^6/ul (4.20-5.40)
[2018-07-29 05:37] LABS: ANION GAP 11 (5-13); BLOOD UREA NITROGEN 19 mg/dl (7-20); CALCIUM 8.9 mg/dl (8.4-10.2); CARBON DIOXIDE 30 mmol/L (21-31); CHLORIDE 94 mmol/L (97-110); GLUCOSE 193 mg/dl (70-220); MAGNESIUM 1.8 mg/dl (1.7-2.5); PHOSPHORUS 2.8 mg/dl (2.5-4.9); POTASSIUM 3.6 mmol/L (3.5-5.1); SODIUM 135 mmol/L (135-144)
[2018-07-29 05:42] LABS: POSITIVE DIFF @See below
[2018-07-29 05:43] LABS: PLATELET COUNT 38 10^3/UL (140-415)
[2018-07-29] MEDS: PANTOPRAZOLE (EC) 40 MG TAB PO (06:00)
[2018-07-29] MEDS: LEVOTHYROXINE 25 MCG TAB PO (06:27)
[2018-07-29] MEDS: AMIODARONE 200 MG TAB PO ×2 (09:31→20:46)
[2018-07-29] MEDS: DOCUSATE SODIUM 100 MG CAP PO (09:31)
[2018-07-29] MEDS: MIDODRINE 5 MG TAB PO ×3 (09:31→20:47)
[2018-07-29] MEDS: MULTIVIT/CA CARB/B CMPLX/FA TAB PO (09:31)
[2018-07-29] MEDS: BALSAM PERU/CASTOR OIL 60 GM TUBE TOP (09:32)
[2018-07-29] MEDS: DIGOXIN 0.125 MG TAB PO (13:19)
[2018-07-29] MEDS: ALBUMIN HUMAN 25% 100 ML IV ×2 (13:20→20:46)
[2018-07-29] MEDS: CYANOCOBALAMIN 1000 MCG INJ IM (13:21)
[2018-07-29] MEDS: MEGESTROL 40 MG TAB PO (20:46)
[2018-07-29] MEDS: LORAZEPAM 1 MG TAB PO (20:50)
[2018-07-30 04:56] LABS: ADD MAN DIFF? NO
[2018-07-30 05:02] LABS: ABNORMAL IP MESSAGE 1; BASOPHILS % 0.3 % (0.0-2.0); EOSINOPHILS # 0.1 10^3/ul (0.0-0.5); EOSINOPHILS % 0.8 % (0.0-7.0); HEMOGLOBIN 11.4 g/dl (12.0-16.0); LYMPHOCYTES # 0.7 10^3/ul (0.8-2.9); LYMPHOCYTES % 7.2 % (15.0-51.0); MEAN CORPUSCULAR HEMOGLOBIN 31.9 pg (29.0-33.0); MEAN CORPUSCULAR HGB CONC 31.7 g/dl (32.0-37.0); MEAN CORPUSCULAR VOLUME 100.8 fl (82.0-101.0); MONOCYTE # 0.7 10^3/ul (0.3-0.9); MONOCYTES % 6.5 % (0.0-11.0); NEUTROPHIL # 8.6 10^3/ul (1.6-7.5); NEUTROPHILS % 84.1 % (39.0-77.0); PLATELET COUNT 32 10^3/UL (140-415); RED BLOOD COUNT 3.57 10^6/ul (4.20-5.40); RED CELL DISTRIBUTION WIDTH 18.8 % (11.5-14.5)
[2018-07-30 05:02] LABS: WHITE BLOOD COUNT 10.3 10^3/ul (4.8-10.8)
[2018-07-30 05:13] LABS: POSITIVE DIFF @See below
[2018-07-30 05:24] LABS: ANION GAP 9 (5-13); BLOOD UREA NITROGEN 23 mg/dl (7-20); CALCIUM 8.6 mg/dl (8.4-10.2); CARBON DIOXIDE 27 mmol/L (21-31); CHLORIDE 89 mmol/L (97-110); CREATININE 2.03 mg/dl (0.44-1.00); MAGNESIUM 1.8 mg/dl (1.7-2.5); PHOSPHORUS 3.3 mg/dl (2.5-4.9); POTASSIUM 3.6 mmol/L (3.5-5.1); SODIUM 125 mmol/L (135-144)
[2018-07-30 05:26] LABS: LACTIC ACID 1.6 mmol/L (0.5-2.0)
[2018-07-30 05:27] LABS: GLUCOSE 618 mg/dl (70-220)
[2018-07-30] MEDS: ALBUMIN HUMAN 25% 100 ML IV (06:24)
[2018-07-30] MEDS: MIDODRINE 5 MG TAB PO ×2 (06:25→14:52)
[2018-07-30] MEDS: PANTOPRAZOLE (EC) 40 MG TAB PO (06:25)
[2018-07-30] MEDS: LEVOTHYROXINE 25 MCG TAB PO (06:25)
[2018-07-30 06:44] LABS: GLUCOSE 107 mg/dl (70-220)
[2018-07-30] MEDS: DEXTROSE 10% 1,000 ML IV (08:00)
[2018-07-30] MEDS: BALSAM PERU/CASTOR OIL 60 GM TUBE TOP (09:40)
[2018-07-30] MEDS: MULTIVIT/CA CARB/B CMPLX/FA TAB PO (11:34)
[2018-07-30] MEDS: DOCUSATE SODIUM 100 MG CAP PO (11:35)
[2018-07-30] MEDS: MEGESTROL 40 MG TAB PO (11:35)
[2018-07-30] MEDS: AMIODARONE 200 MG TAB PO (11:36)
[2018-07-30] MEDS: GENTAMICIN 60 MG in SOD CHLORIDE 0.9% 50 ML IVPB (14:51)
[2018-07-30] MEDS: DIGOXIN 0.125 MG TAB PO (14:52)
[2018-07-30] MEDS: NORepinephrine 32 MG in DEXTROSE 5% 218 ML IV (17:00)
[2018-07-30] MEDS: morphine SULFATE/PF (2 MG/2 ML) SYG IV ×2 (21:55→23:53)
[2018-07-31] MEDS: morphine SULFATE/PF (2 MG/2 ML) SYG IV ×2 (02:04→04:55)
== END 2018-07-31 07:39 | disposition expired | DRG 871 ==
LOC: E/R 13:42 → ICU 14:49
PROVIDERS: Internal Medicine
PROC: 5A1D70Z Performance of Urinary Filtration, Intermittent, Less than 6 Hours Per Day (ICD-10-PCS; 2018-07-21)
PROC: 02HV33Z Insertion of Infusion Device into Superior Vena Cava, Percutaneous Approach (ICD-10-PCS; principal; 2018-07-22)
DX: A41.50 Gram-negative sepsis, unspecified (principal); R65.21 Severe sepsis with septic shock; N18.6 End stage renal disease; J96.01 Acute respiratory failure with hypoxia; G93.41 Metabolic encephalopathy; N39.0 Urinary tract infection, site not specified; I13.2 Hypertensive heart and chronic kidney disease with heart failure and with stage 5 chronic kidney disease, or end stage renal disease; E87.1 Hypo-osmolality and hyponatremia; I42.9 Cardiomyopathy, unspecified; D61.818 Other pancytopenia; I50.20 Unspecified systolic (congestive) heart failure; E87.5 Hyperkalemia; E11.22 Type 2 diabetes mellitus with diabetic chronic kidney disease; E11.649 Type 2 diabetes mellitus with hypoglycemia without coma; Z99.2 Dependence on renal dialysis; Z95.0 Presence of cardiac pacemaker; Z51.5 Encounter for palliative care; Z66 Do not resuscitate
CPT/HCPCS: 36415; 36569; 36600; 71045; 76937; 80048; 80053; 80162; 80202; 81001; 82533; 82550; 82553; 82803; 82947; 82962; 83036; 83605; 83690; 83735; 83880; 84100; 84484; 85025; 85610; 85730; 86704; 86709; 86803; 87040; 87081; 87086; 87340; 90935; 93005; 93306; 94660; 96374; 97110; 97162; 97167; 97530; 99291-25